=== PATIENT | male | born 1960 | race Caucasian/White ===

== ENCOUNTER 2017-08-08 10:59 | Emergency (ER) | payer OTHER ==
[2017-08-08] VITALS (10 sets, daily range): BP systolic 99–148; BP diastolic 58–79; PULSE 81–102; TEMP 36.5–37.2; O2SAT 95–100; Ht 180.3 cm; Wt 57.0 kg
[~2017-08-08] VITALS: Ht 180.3 cm; Wt 57.0 kg
[2017-08-08] MEDS ORDERED: SODIUM CHLORIDE 0.9% 1000ML 1,000 ML IV STA (11:15)
[2017-08-08] MEDS ORDERED: ACETAMINOPHEN 500 MG TAB PO STA (11:15)
[2017-08-08] MEDS ORDERED: PIPERACILLIN/TAZOBACTAM 4.5 GM/100ML D5W IV STA (11:15)
--- NOTE | 2017-08-08 11:28 | EMERGENCY ROOM VISIT NOTE ---
History Report prepared by Anum: Jay Barrera Under the Supervision of: Dr. Mao Bansal M.D. First contact with patient: 11:12 Chief Complaint: RECTAL PAIN Stated Complaint: RECTAL DISCOMFORT, FLUID, WEAKNESS Nursing Triage Summary: pt reports rectal protrussion x1 year. has not been feeling well tired and weak. wt loss and yellow hue to skin has rectal drainage white colored History of Present Illness The patient is a 56 year old male who presents to the Emergency Room with complaints of worsening rectal discharge that began 1 year ago. He states that he has never sought medical attention for this issue because he has not had health insurance. Over this time, he has been experiencing increased weight loss and weakness. He also has been feeling short of breath with exertion. He denies any fevers, chest pain, nausea, vomiting, or diarrhea. He notes some difficulty urinating, swelling to his legs, pain with bowel movements, and diaphoresis when he sleeps. He is not currently taking any medications. Source of History: patient Onset: 1 year ago Position: other (Rectal) Symptom Intensity: moderate Quality: other (Discharge) Timing: worsening Associated Symptoms: + diaphoresis, + SOB (with exertion), + urinary symptoms (difficulty urinating), + weakness, No fevers, No chest pain, No nausea , No vomiting, No diarrhea Note: He is experiencing weight loss, pain with bowel movements, and swelling to his legs. Review of Systems See HPI for pertinent positives & negatives. A total of 10 systems reviewed and were otherwise negative. Past Medical & Surgical No known medical conditions Family History Patient reports no known family medical history. Social History Smoking Status: Never Smoker Drug Use: none Occupation Status: employed Current/Historical Medications No Active Prescriptions or Reported Meds Allergies Coded Allergies: No Known Allergies (Unverified , 08/08/17) Physical Exam Vital Signs Date Time Temp Pulse Resp B/P (MAP) Pulse Ox O2 Delivery O2 Flow Rate FiO2 08/08/17 17:25 36.9 85 18 125/64 100 08/08/17 17:00 37.0 82 20 99/66 99 08/08/17 17:00 37.0 79 20 99/66 99 Room Air 08/08/17 16:00 36.5 85 17 102/58 96 08/08/17 15:25 37.0 81 20 101/66 96 1/30/18 15:00 37.0 102 20 141/75 97 08/08/17 14:49 83 18 103/66 95 Room Air 08/08/17 12:52 99 18 129/81 97 Room Air 08/08/17 11:39 Room Air 08/08/17 11:38 109 08/08/17 11:03 37.6 127 20 131/77 98 Room Air Physical Exam GENERAL: Patient is in no acute distress. HEENT: No acute trauma, normocephalic atraumatic, mucous membranes moist, no nasal congestion, no scleral icterus. NECK: No stridor, no adenopathy, no meningismus, trachea is midline. LUNGS: Clear to auscultation bilaterally, no wheeze, no rhonchi, breath sounds equal. HEART: Tachycardic rate with a regular rhythm. No murmurs. ABDOMEN: Soft, nontender, bowel sounds positive, no hernias, no peritonitis. RECTUM: Firm mass-like swelling to the left aspect of the rectum and buttock. No cellulitis. Area is somewhat tender to palpate. No pus-like drainage appreciated. EXTREMITIES: No cyanosis, full range of motion of all the joints without pain or difficulty, no signs for acute trauma. Moderate bilateral pedal edema. NEUROLOGIC: Oriented x 3, no acute motor or sensory deficits, no focal weakness. SKIN: No rash, no jaundice, no diaphoresis. Pale. Medical Decision & Procedures ER Provider Diagnostic Interpretation: Radiology results as stated below per my review and radiologist interpretation: CHEST ONE VIEW PORTABLE CLINICAL HISTORY: Abdominal pain. COMPARISON STUDY: No previous studies for comparison. FINDINGS: Lung volumes are normal. There is no pneumothorax. There is no definite pleural effusion. There is mild nodular left basilar opacity as well as a 1.3 cm nodular right lower lung opacity. There is no evidence for pulmonary edema. Note is made of an old fracture of the right third rib. Cardiac size is normal. Mediastinal contours are normal. IMPRESSION: 1. No definite acute cardiopulmonary findings. 2. Mild nodular bibasilar opacities which can be assessed on subsequent CT of the abdomen and pelvis which has been ordered. Electronically signed by: Clayton Caceres M.D. 08/08/2017 11:39 AM Dictated Date/Time: 08/08/2017 11:[address] ABD/PELVIS IV AND ORAL CONT CLINICAL HISTORY: Generalized abdominal pain. Possible diverticulitis. Possible rectal mass. Possible abscess. COMPARISON STUDY: None. TECHNIQUE: Following the IV administration of 120 mL of Optiray-320, CT scan of the abdomen and pelvis was performed from the lung bases to the proximal femurs. Images are reviewed in the axial, sagittal, and coronal planes. IV contrast was administered without complication. A dose lowering technique was utilized adhering to the principles of ALARA. CT DOSE: 272.59 mGy.cm FINDINGS: Lower chest: There is a 32 mm pleural-based nodule at the left lung base. There is an adjacent 5 mm satellite nodule. There is an equivocal prominent vessel leading up to this 32 mm nodule. There is a 19 mm pleural-based nodule at the right lung base. Also evident are additional 5 mm and 4 mm left lower lobe nodules. Liver: There are multiple hepatic masses present. The 2 largest right lobe masses measure 5.8 cm and 2.9 cm respectively. The 2 largest left flow masses measure 6.2, and 5.3 cm respectively. Gallbladder: No calculi are visualized on CT scanning. Spleen: Normal in size and attenuation. Pancreas: Unremarkable. Adrenal glands: Unremarkable. Kidneys: There is symmetric renal cortical enhancement. The kidneys are normal in size without hydronephrosis. Bowel: There is a 12 cm rectosigmoid mass extending to the anal verge. There is an adjacent multiloculated perirectal abscess measuring 8.6 x 7.8 x 12 cm. The rectosigmoid mass appears to extend into the pericolonic fat. Peritoneum: There is no intraperitoneal free air or abdominal ascites. Vasculature: The abdominal aorta is normal in course and caliber. There is a filling defect within the right superficial femoral vein. As highly suspicious for a DVT. Ultrasound confirmation is recommended. Adenopathy: There are multiple small para-aortic lymph nodes which do not individually enlarged by size criteria. There are borderline enlarged left inguinal lymph nodes. Pelvic viscera: The patient's rectosigmoid mass is contiguous with the seminal vesicles, and prostate.. Skeletal structures: No destructive osseous lesions are seen. IMPRESSION: 1. 12 cm rectosigmoid mass, with moderate luminal narrowing, and extension into the pericolonic fat. There is evidence of prior perforation with a perirectal abscess. 2. Multiloculated perirectal abscess measuring 8.6 x 7.8 x 12 cm 3. Multiple hepatic masses viewed as highly suspicious for metastatic disease 4. Right superficial femoral vein filling defect viewed as highly suspicious for DVT 5. Lower lobe pulmonary nodules. Electronically signed by: Konstantin Bush M.D. 08/08/2017 2:36 PM Dictated Date/Time: 08/08/2017 2:14 PM Bilateral lower extremity ultrasound: IMPRESSION: Extensive bilateral lower extremity deep venous thrombosis as above. Laboratory Results 08/08/17 11:45 Red Blood Count 3.04, Mean Corpuscular Volume 57.6, Mean Corpuscular Hemoglobin 14.8, Mean Corpuscular Hemoglobin Concent 25.7, Neutrophils (%) (Auto) 87.7, Lymphocytes (%) (Auto) 4.4, Monocytes (%) (Auto) 7.0, Eosinophils (%) (Auto) 0.1 , Basophils (%) (Auto) 0.3, Neutrophils # (Auto) 12.45, Lymphocytes # (Auto) 0.63, Monocytes # (Auto) 0.99, Eosinophils # (Auto) 0.02, Basophils # (Auto) 0.04 08/08/17 11:45 Test 08/08/17 11:25 08/08/17 11:45 08/08/17 12:42 Influenza Type A Antigen Neg for Influ A (NEG) Influenza Type B Antigen Neg for Influ B (NEG) White Blood Count 14.20 K/uL (4.8-10.8) Red Blood Count 3.04 M/uL (4.7-6.1) Hemoglobin 4.5 g/dL (14.0-18.0) Hematocrit 17.5 % (42-52) Mean Corpuscular Volume 57.6 fL (80-100) Mean Corpuscular Hemoglobin 14.8 pg (25-34) Mean Corpuscular Hemoglobin Concent 25.7 g/dl (32-36) Platelet Count 503 K/uL (130-400) Neutrophils (%) (Auto) 87.7 % Lymphocytes (%) (Auto) 4.4 % Monocytes (%) (Auto) 7.0 % Eosinophils (%) (Auto) 0.1 % Basophils (%) (Auto) 0.3 % Neutrophils # (Auto) 12.45 K/uL (1.4-6.5) Lymphocytes # (Auto) 0.63 K/uL (1.2-3.4) Monocytes # (Auto) 0.99 K/uL (0.11-0.59) Eosinophils # (Auto) 0.02 K/uL (0-0.5) Basophils # (Auto) 0.04 K/uL (0-0.2) Immature Granulocyte % (Auto) 0.5 % Immature Granulocyte # (Auto) 0.07 K/uL (0.00-0.02) Toxic Vacuolation 1+ Large Platelets 1+ Polychromasia 1+ Hypochromasia PRESENT Poikilocytosis PRESENT Prothrombin Time 11.0 SECONDS (9.0-12.0) Prothromb Time International Ratio 1.0 (0.9-1.1) Activated Partial Thromboplast Time 22.5 SECONDS (21.0-31.0) Partial Thromboplastin Ratio 0.9 Anion Gap 10.0 mmol/L (3-11) Est Creatinine Clear Calc Drug Dose 78.2 ml/min Estimated GFR () 112.4 Estimated GFR (Non- 97.0 BUN/Creatinine Ratio 19.0 (10-20) Calcium Level 8.5 mg/dl (8.5-10.1) Magnesium Level 2.1 mg/dl (1.8-2.4) Total Bilirubin 0.3 mg/dl (0.2-1) Aspartate Amino Transf (AST/SGOT) 34 U/L (15-37) Alanine Aminotransferase (ALT/SGPT) 24 U/L (12-78) Alkaline Phosphatase 79 U/L (45-117) Troponin I < 0.015 ng/ml (0-0.045) Total Protein 7.6 gm/dl (6.4-8.2) Albumin 2.2 gm/dl (3.4-5.0) Globulin 5.4 gm/dl (2.5-4.0) Albumin/Globulin Ratio 0.4 (0.9-2) Lipase 38 U/L (73-393) Thyroid Stimulating Hormone (TSH) 1.700 uIu/ml (0.300-4.500) Lactic Acid Level 1.5 mmol/L (0.4-2.0) Laboratory results reviewed by me. Medications Administered Medications (Trade) Dose Ordered Sig/Lety Route Start Time Stop Time Status Last Admin Dose Admin Acetaminophen (Tylenol Tab) 1,000 mg NOW STAT PO 08/08/17 11:15 08/08/17 11:20 DC 1/30/18 12:51 1,000 MG Sodium Chloride 1,000 ml @ 999 mls/hr Q1H1M STAT IV 08/08/17 11:15 08/08/17 12:15 DC 08/08/17 12:51 999 MLS/HR Piperacillin Sod/ Tazobactam Sod (Zosyn Iv) 4.5 gm NOW STAT IV 08/08/17 11:15 08/08/17 11:20 DC 08/08/17 12:51 4.5 GM ECG Indication: tachycardia Rate (beats per minute): 103 Rhythm: sinus tachycardia Findings: peaked T-waves, no acute ischemic change, no ectopy Change: ECG interpreted by me ED Course 1112: The patient was evaluated in room C10. A complete history and physical exam was performed. 1115: Ordered Zosyn Iv 4.5 gm IV, Sodium Chloride 1000 ml @ 999 mls/hr IV, Tylenol Tab 1000 mg PO 1452: I discussed the patient's case with Dr. Steven of General Surgery at this time. He would like to transfer the patient to a tertiary care facility. 1458: The patient is agreeable with possible transfer. He would like to try [place]. 1534: I spoke with Dr. Mitchell of [facility] Colorectal Surgery at this time. We discussed the patient's case. They will try to find a bed for the patient and will call us back. 1620: I updated the patient at this time. He is aware of the plan. He is beginning to look better. His heart rate is down to 80 bpm and he is getting fluids. 1700: A bed has not opened up at [facility] yet, so we will talk with a hospitalist service for inpatient treatment pending bed availability. 1704: Upon reexamination the patient is resting. I discussed results and treatment plan with the patient. He verbalizes agreement and understanding. I spoke with Dr. Mondragon of the [facility]. We discussed the patient's results and findings. The patient will be evaluated by them for further management. 1708: I spoke with Dr. Pope of the ICU. He will be down to the ER to evaluate the patient. Medical Decision Differential diagnosis includes but is not limited to rectal abscess, rectal mass, diverticulitis, hemorrhoid, dehydration, electrolyte imbalance, anemia, sepsis, and UTI. There is a moderate leukocytosis at 14,000, this is consistent with infection. The patient is severely anemic with a hemoglobin of around 4.5. No significant electrolyte abnormality or kidney failure. No hepatitis or coagulopathy. Lactic acid level is not elevated making severe sepsis less likely. Chest film did not show pneumonia or pneumothorax. Some potential nodules were seen. EKG showed a sinus tachycardia with out any evidence for acute ischemia. Cardiac enzyme testing 1 is not consistent with acute cardiac injury. The patient appears to be in a euthyroid state. Abdominal and pelvis CT shows a perirectal mass and a large perirectal abscess, there was evidence for potential metastases in the liver. A clot in the right femoral vein was suspected. Bilateral lower external ultrasound demonstrates evidence for bilateral lower extremity DVTs. The patient was aggressively managed as he presented quite ill. He received IV saline, IV Zosyn. He was ordered for blood for transfusion, 2 units were ordered to be given, each over about 1- 2 hours. The blood was started here in the emergency room. The patient received oral Tylenol. The patient is improved with the above treatment. He feels better, his heart rate is improved. He is not hypotensive. I spoke with our general surgeon on-call about the abscess finding, he recommended transfer. Given the patient's insurance, he required transfer into the [facility] system. [facility] did not have a colorectal surgeon. [facility] in [place] was contacted. I spoke to the colorectal surgeon there. They were happy with the care so far, they recommended further resuscitation. They did want to accept the patient to their facility however, there was no bed available. After several hours of waiting, we did recontact [facility], there was no bed available. At this point, a hospital stay at our facility for further resuscitation with eventual transfer to [facility] was felt the most appropriate option. I talked to the patient about all the findings, I did speak with our health psychologist at this hospital as well as our on-call [facility] hospitalist. I spoke with case management. Medication Reconcilliation Current Medication List: was personally reviewed by me Blood Pressure Screening Patient's blood pressure: Normal blood pressure Blood pressure disposition: Did not require urgent referral Consults Time Called: [id number] Consulting Physician: Dr. Steven - General Surgery Returned Call: [phone] We discussed the patient's case. He would like the patient to be transferred to a tertiary care facility. Additional Consults: Time Called: 1530 Consulted Physician: Dr. Mitchell - [facility] Colorectal Surgery Returned Call: [phone] Additional Comments: We discussed the patient's case. They are trying to find a bed for the patient and will call me back. Time Called: 1700 Consulted Physician: Dr. Mondragon - [facility] Returned Call: [phone] Additional Comments: Discussed the patient's case. The patient will be evaluated for further management. 170 Dr. Pope - ICU 1708 He will be down to the ER to evaluate the patient. Impression Primary Impression: Rectal mass Additional Impressions: Perirectal abscess Anemia DVT, bilateral lower limbs Critical Care I have personally spent greater than 50 minutes of critical care time in the direct management of this patient. This includes bedside care, interpretation of diagnostic studies, and testing, discussion with consultants, patient, and family members, and other required patient management activities. This 50 minutes is in excess of all separately billable procedures. Scribe Attestation The scribe's documentation has been prepared under my direction and personally reviewed by me in its entirety. I confirm that the note above accurately reflects all work, treatment, procedures, and medical decision making performed by me. Departure Information Dispostion Being Evaluated By Hospitalist Prescriptions No Active Prescriptions or Reported Meds Patient Instructions My [facility] Problem Qualifiers
--- NOTE | 2017-08-08 11:40 | DIAGNOSTIC IMAGING REPORT ---
CHEST ONE VIEW PORTABLE CLINICAL HISTORY: Abdominal pain. COMPARISON STUDY: No previous studies for comparison. FINDINGS: Lung volumes are normal. There is no pneumothorax. There is no definite pleural effusion. There is mild nodular left basilar opacity as well as a 1.3 cm nodular right lower lung opacity. There is no evidence for pulmonary edema. Note is made of an old fracture of the right third rib. Cardiac size is normal. Mediastinal contours are normal. IMPRESSION: 1. No definite acute cardiopulmonary findings. 2. Mild nodular bibasilar opacities which can be assessed on subsequent CT of the abdomen and pelvis which has been ordered. Electronically signed by: Clayton Caceres M.D. 08/08/2017 11:39 AM Dictated Date/Time: 08/08/2017 11:37 AM
[2017-08-08] MEDS ORDERED: OPTIRAY 320 IV PRN (11:45)
[2017-08-08 12:20] LABS: PTT PATIENT 22.5 SECONDS (21.0-31.0)
[2017-08-08 12:27] LABS: INFLUENZA B ANTIGEN Neg for Influ B (NEG)
[2017-08-08 12:28] LABS: ALBUMIN 2.2 gm/dl (3.4-5.0); ALT/SGPT 24 U/L (12-78); BLOOD UREA NITROGEN 16 mg/dl (7-18); CALCIUM 8.5 mg/dl (8.5-10.1); CARBON DIOXIDE 25 mmol/L (21-32); CREATININE 0.83 mg/dl (0.60-1.40); GLUCOSE 111 mg/dl (70-99); LIPASE 38 U/L (73-393); POTASSIUM 4.1 mmol/L (3.5-5.1); SODIUM 134 mmol/L (136-145)
[2017-08-08 12:33] LABS: HEMATOCRIT 17.5 % (42-52); HEMOGLOBIN 4.5 g/dL (14.0-18.0); MEAN CELL VOLUME 57.6 fL (80-100); MEAN CORPUSCULAR HEMOGLOBIN 14.8 pg (25-34); MEAN CORPUSCULAR HGB CONC 25.7 g/dl (32-36); PLATELET COUNT 503 K/uL (130-400)
[2017-08-08 12:39] LABS: ALKALINE PHOSPHATASE 79 U/L (45-117); AST/SGOT 34 U/L (15-37); TOTAL PROTEIN 7.6 gm/dl (6.4-8.2)
[2017-08-08 12:55] LABS: BASO % 0.3 %; BASO ABS # 0.04 K/uL (0-0.2); EOS % 0.1 %; EOS ABS # 0.02 K/uL (0-0.5); IG# 0.07 K/uL (0.00-0.02); LYMPH % 4.4 %; LYMPH ABS # 0.63 K/uL (1.2-3.4); MONO ABS # 0.99 K/uL (0.11-0.59); NEUT % 87.7 %; NEUT ABS # 12.45 K/uL (1.4-6.5)
--- NOTE | 2017-08-08 14:38 | DIAGNOSTIC IMAGING REPORT ---
CT ABD/PELVIS IV AND ORAL CONT CLINICAL HISTORY: Generalized abdominal pain. Possible diverticulitis. Possible rectal mass. Possible abscess. COMPARISON STUDY: None. TECHNIQUE: Following the IV administration of 120 mL of Optiray-320, CT scan of the abdomen and pelvis was performed from the lung bases to the proximal femurs. Images are reviewed in the axial, sagittal, and coronal planes. IV contrast was administered without complication. A dose lowering technique was utilized adhering to the principles of ALARA. CT DOSE: 272.59 mGy.cm FINDINGS: Lower chest: There is a 32 mm pleural-based nodule at the left lung base. There is an adjacent 5 mm satellite nodule. There is an equivocal prominent vessel leading up to this 32 mm nodule. There is a 19 mm pleural-based nodule at the right lung base. Also evident are additional 5 mm and 4 mm left lower lobe nodules. Liver: There are multiple hepatic masses present. The 2 largest right lobe masses measure 5.8 cm and 2.9 cm respectively. The 2 largest left flow masses measure 6.2, and 5.3 cm respectively. Gallbladder: No calculi are visualized on CT scanning. Spleen: Normal in size and attenuation. Pancreas: Unremarkable. Adrenal glands: Unremarkable. Kidneys: There is symmetric renal cortical enhancement. The kidneys are normal in size without hydronephrosis. Bowel: There is a 12 cm rectosigmoid mass extending to the anal verge. There is an adjacent multiloculated perirectal abscess measuring 8.6 x 7.8 x 12 cm. The rectosigmoid mass appears to extend into the pericolonic fat. Peritoneum: There is no intraperitoneal free air or abdominal ascites. Vasculature: The abdominal aorta is normal in course and caliber. There is a filling defect within the right superficial femoral vein. As highly suspicious for a DVT. Ultrasound confirmation is recommended. Adenopathy: There are multiple small para-aortic lymph nodes which do not individually enlarged by size criteria. There are borderline enlarged left inguinal lymph nodes. Pelvic viscera: The patient's rectosigmoid mass is contiguous with the seminal vesicles, and prostate.. Skeletal structures: No destructive osseous lesions are seen. IMPRESSION: 1. 12 cm rectosigmoid mass, with moderate luminal narrowing, and extension into the pericolonic fat. There is evidence of prior perforation with a perirectal abscess. 2. Multiloculated perirectal abscess measuring 8.6 x 7.8 x 12 cm 3. Multiple hepatic masses viewed as highly suspicious for metastatic disease 4. Right superficial femoral vein filling defect viewed as highly suspicious for DVT 5. Lower lobe pulmonary nodules. Electronically signed by: Konstantin Bush M.D. 08/08/2017 2:36 PM Dictated Date/Time: 08/08/2017 2:14 PM
--- NOTE | 2017-08-08 17:52 | DIAGNOSTIC IMAGING REPORT ---
ULTRASOUND BILATERAL LOWER EXTREMITY VENOUS CLINICAL HISTORY: Lower extremity edema. Cancer history. COMPARISON STUDY: No priors. TECHNIQUE: Real-time, grayscale, and color Doppler sonography of the deep veins of the right and left lower extremity was performed from the inguinal crease to the calf. Compression and augmentation were utilized. FINDINGS: Right lower extremity: There is extensive right lower extremity deep venous thrombosis. There is nearly occlusive to occlusive deep venous thrombosis identified within the common femoral vein, throughout the superficial femoral vein, in the popliteal vein, and in the calf veins. The greater saphenous vein and the profunda femoris vein at the junction with the common femoral vein are clear. Left lower extremity: There is extensive deep venous thrombosis in the left lower extremity. This is seen nonocclusive throughout the superficial femoral vein, and becomes occlusive in the popliteal vein. Deep venous thrombosis is also seen in the calf within the anterior tibial, posterior tibial, and peroneal veins. The common femoral vein is patent and normally compressible. The greater saphenous vein and the profunda femoris vein at the junction with the common femoral vein are clear. The visualized calf veins are patent The iliac vessels appear patent bilaterally. The mid to distal IVC is patent as visualized. IMPRESSION: Extensive bilateral lower extremity deep venous thrombosis as above. Electronically signed by: Mao Mancini M.D. 08/08/2017 5:51 PM Dictated Date/Time: 08/08/2017 5:46 PM
[2017-08-08] MEDS ORDERED: D5NSS + 20MEQ KCL 1,000 ML IV SCH (18:38)
[2017-08-08] MEDS ORDERED: THIAMINE HCL IV STA (18:38)
[2017-08-08] MEDS ORDERED: ONDANSETRON INJ 2 MG/ML 2 ML VIAL IV PRN (18:45)
[2017-08-08] MEDS ORDERED: ACETAMINOPHEN 325 MG TAB PO PRN (18:45)
[2017-08-08] MEDS ORDERED: ALUMINUM/MAGNESIUM/SIMETH (MAALOX MAX) 30 ML UDC PO PRN (18:45)
[2017-08-08] MEDS ORDERED: VANCOMYCIN CONSULT ACTIVE PRN (18:45)
[2017-08-08] MEDS ORDERED: MoRPHine SULFATE 2 MG/ML CARP IV PRN (18:45)
[2017-08-08] MEDS ORDERED: LORAZEPAM 2 MG/ML 1 ML VIAL IV PRN (18:45)
[2017-08-08] MEDS ORDERED: GABAPENTIN 800 MG TAB PO SCH (18:45)
[2017-08-08] MEDS ORDERED: ICU PROTOCOL FOR HYPERGLYCEMIA PRN (18:45)
[2017-08-08] MEDS ORDERED: LORAZEPAM 1 MG TAB PO PRN (18:45)
[2017-08-08] MEDS ORDERED: PIPERACILL/TAZOBAC CONSULT ACTIVE PRN (18:45)
[2017-08-08] MEDS ORDERED: HEPARIN SOD (PORCINE) 1000 UNIT/ML 10 ML VIAL ONE (19:18)
[2017-08-08] MEDS ORDERED: HEPARIN 25000 UNIT/500 ML D5W ONE (19:18)
--- NOTE | 2017-08-08 19:26 | Critical Care Consultation ---
Critical Care Consultation Date of Consultation: Aug 08, 2017. Attending Physician: Rolf Reason for Consultation: Profound anemia, new colon mass, colon Abscess History of Present Illness Patient is a 56-year-old male without significant past medical history who presents with worsening rectal discharge and symptomatology that began over a year ago. He deferred medical care secondary to being uninsured. He is now obtained health insurance. He is admits to approximately 40 pound weight loss as well as early satiety. He has tenesmus and small stools. He's been feeling increasingly short of breath with past several weeks. He denies any overt rectal bleeding occasionally he does notice spots on the toilet paper. Past Medical/Surgical History Heavy alcohol use with withdrawal seizure previously Family History Patient reports no known family medical history. Social History Smoking Status: Never Smoker Alcohol Use: heavy (with history of alcohol withdrawal seizure) Drug Use: none Occupation Status: employed Allergies Coded Allergies: No Known Allergies (Unverified , 08/08/17) Home Medications No Active Prescriptions or Reported Meds Current Inpatient Medications Current Inpatient Medications Medications (Trade) Dose Ordered Sig/Lety Route Start Time Stop Time Status Last Admin Dose Admin Ioversol (Optiray 320) 125 ml UD PRN IV 08/08/17 11:45 08/12/17 11:44 Heparin Sodium/ Dextrose 1 ea NOW STAT N/A 08/08/17 18:28 08/08/17 18:29 UNV Potassium Chloride/Dextrose/ Sod Cl 1,000 ml @ 75 mls/hr [id number] IV 08/08/17 18:38 09/07/17 18:37 UNV Acetaminophen (Tylenol Tab) 650 mg Q4H PRN PO 08/08/17 18:45 09/07/17 18:44 UNV Al Hydrox/Mg Hydrox/Simethicone (Maalox Max Susp) 15 ml Q4H PRN PO 08/08/17 18:45 09/07/17 18:44 UNV Ondansetron HCl (Zofran Inj) 4 mg Q6H PRN IV 08/08/17 18:45 09/07/17 18:44 UNV Pantoprazole Sodium (Protonix Tab) 40 mg DAILY PO 08/09/17 09:00 09/08/17 08:59 UNV Morphine Sulfate (MoRPHine SULFATE INJ) 2 mg Q2H PRN IV 08/08/17 18:45 08/22/17 18:44 UNV Miscellaneous Information (Icu Protocol For Hyperglycemia) 1 ea PRN PRN N/A 08/08/17 18:45 08/10/17 18:44 UNV Thiamine HCl 200 mg/Syringe 11 ml @ 2 mls/min Q12H STAT IV 08/08/17 18:38 08/08/17 18:43 UNV Lorazepam (Ativan Tab) 1 mg ONE PRN PO 08/08/17 18:45 UNV Gabapentin (Neurontin Tab) 800 mg SEE PROTOCOL TEXT PO 08/08/17 18:45 09/07/17 18:44 UNV Lorazepam (Ativan Inj) 1 mg ONE PRN IV 08/08/17 18:45 UNV Folic Acid 1 mg/ Syringe 10 ml @ 5 mls/min QAM IV 08/09/17 09:00 09/08/17 08:59 UNV Multivitamins/ Minerals (Multivitamin W/ Minerals Tab) 1 tab QAM PO 08/09/17 09:00 09/08/17 08:59 UNV Piperacillin Sod/ Tazobactam Sod 3.375 gm/Dextrose 115 ml @ 28.75 mls/ hr Q8 IV 08/09/17 02:00 08/19/17 01:59 UNV Miscellaneous Information (Consult) 1 ea UD PRN N/A 08/08/17 18:45 09/07/17 18:44 UNV Vancomycin HCl 1000 mg/Sodium Chloride 270 ml @ 125 mls/hr Q12 IV 08/08/17 21:00 08/18/17 20:59 UNV Miscellaneous Information (Consult) 1 ea UD PRN N/A 08/08/17 18:45 09/07/17 18:44 UNV Review of Systems A 10 point review of systems has been obtained and is otherwise negative Constitutional: + weight loss, + weakness, + fatigue Eyes: No worsening of vision, No eye pain, No redness, No discharge, No diplopia, No problem reported Respiratory: No cough, No sputum, No wheezing, No shortness of breath, No dyspnea on exertion, No dyspnea at rest, No hemoptysis, No problem reported Cardiovascular: No chest pain, No orthopnea, No PND, No edema, No claudication , No palpitations, No problem reported Abdomen: + pain, + problem reported (tenesmus), No GI bleeding Physical Exam Date Time Temp Pulse Resp B/P (MAP) Pulse Ox O2 Delivery O2 Flow Rate FiO2 08/08/17 18:45 37.2 83 18 104/68 98 08/08/17 18:45 37.2 83 18 104/68 98 Room Air 08/08/17 18:18 36.9 83 20 124/74 98 08/08/17 17:25 36.9 85 18 125/64 100 08/08/17 17:00 37.0 82 20 99/66 99 08/08/17 17:00 37.0 79 20 99/66 99 Room Air 08/08/17 16:00 36.5 85 17 102/58 96 08/08/17 15:25 37.0 81 20 101/66 96 08/08/17 15:00 37.0 102 20 141/75 97 08/08/17 14:49 83 18 103/66 95 Room Air 08/08/17 12:52 99 18 129/81 97 Room Air 08/08/17 11:39 Room Air 08/08/17 11:38 109 08/08/17 11:03 37.6 127 20 131/77 98 Room Air General Appearance: uncomfortable, cachetic Head: normocephalic, atraumatic Eyes: PERRLA Neck: normal range of motion, no tenderness, trachea midline, no stridor, supple, no thyromegaly, no lymphadenopathy Respiratory: breath sounds normal, clear to auscultation, clear to percussion Cardiovasular: regular rate/rhythm, normal S1S2, no M/G/R, no murmur, no gallop , no rub, no JVD, normal peripheral pulses Abdomen: non tender, no rebound, no masses, no guarding Upper Extremities: no edema Lower Extremities: no edema Neuro: alert, oriented x 3 Laboratory Results Last 24 Hours Test 08/08/17 11:25 08/08/17 11:45 08/08/17 12:42 08/08/17 18:38 Influenza Type A Antigen Neg for Influ A Influenza Type B Antigen Neg for Influ B White Blood Count 14.20 K/uL Red Blood Count 3.04 M/uL Hemoglobin 4.5 g/dL Hematocrit 17.5 % Mean Corpuscular Volume 57.6 fL Mean Corpuscular Hemoglobin 14.8 pg Mean Corpuscular Hemoglobin Concent 25.7 g/dl Platelet Count 503 K/uL Neutrophils (%) (Auto) 87.7 % Lymphocytes (%) (Auto) 4.4 % Monocytes (%) (Auto) 7.0 % Eosinophils (%) (Auto) 0.1 % Basophils (%) (Auto) 0.3 % Neutrophils # (Auto) 12.45 K/uL Lymphocytes # (Auto) 0.63 K/uL Monocytes # (Auto) 0.99 K/uL Eosinophils # (Auto) 0.02 K/uL Basophils # (Auto) 0.04 K/uL Immature Granulocyte % (Auto) 0.5 % Immature Granulocyte # (Auto) 0.07 K/uL Toxic Vacuolation 1+ Large Platelets 1+ Polychromasia 1+ Hypochromasia PRESENT Poikilocytosis PRESENT Prothrombin Time 11.0 SECONDS Prothromb Time International Ratio 1.0 Activated Partial Thromboplast Time 22.5 SECONDS Partial Thromboplastin Ratio 0.9 Sodium Level 134 mmol/L Potassium Level 4.1 mmol/L Chloride Level 99 mmol/L Carbon Dioxide Level 25 mmol/L Anion Gap 10.0 mmol/L Blood Urea Nitrogen 16 mg/dl Creatinine 0.83 mg/dl Est Creatinine Clear Calc Drug Dose 78.2 ml/min Estimated GFR () 112.4 Estimated GFR (Non- 97.0 BUN/Creatinine Ratio 19.0 Random Glucose 111 mg/dl Calcium Level 8.5 mg/dl Magnesium Level 2.1 mg/dl Total Bilirubin 0.3 mg/dl Aspartate Amino Transf (AST/SGOT) 34 U/L Alanine Aminotransferase (ALT/SGPT) 24 U/L Alkaline Phosphatase 79 U/L Troponin I < 0.015 ng/ml Total Protein 7.6 gm/dl Albumin 2.2 gm/dl Globulin 5.4 gm/dl Albumin/Globulin Ratio 0.4 Lipase 38 U/L Thyroid Stimulating Hormone (TSH) 1.700 uIu/ml Lactic Acid Level 1.5 mmol/L Diagnostic Results I independently reviewed the images as well as the radiology report for the CT scan obtained 08/08/2017: Patient has a mass in the colon, obvious abscess in the colon, hyperdensities and hypodensities throughout the liver concerning for malignant, metastatic disease. I also reviewed the images as well as the report for the venous Doppler study. Patient has bilateral DVTs I have independently reviewed the images as well as the report of the chest x- ray, there appears to be a lung nodule in the right lower lung base. Assessment & Plan I was asked to evaluate the patient due to undetermined length of stay at [facility]. In the emergency department the ED physician consult general surgery. General surgery feels he would be best managed at a higher level of care with colorectal surgeon. The patient has been accepted to [facility] however they were unsure of a time in which a bed would open up. He is going to be transferred to their ICU. In the ED physician's discussion with the [facility] physician as was relayed to me they're comfortable with Zosyn for antibiotic coverage and continuing transfusions. At this point there were unaware of the bilateral clot burden. I called our vascular surgeon Dr. Sanabria who is unavailable for several hours. I again called general surgery Dr. Steven to inquire if they have the ability to place an IVC filter. I feel the patient would be best treated with an IVC filter because he is going to have to undergo invasive procedures and given the profound anemia and may be an option instead of having the patient started on a heparin infusion while being transported. Dr. Steven informed me he does not place IVC filters. Accordingly in discussion with the patient felt the risk benefits of clot embolization are high enough that warrant a heparin infusion to be started. I will transfuse him a total of 4 units which I have ordered 2 additional units to be transfused. The 2 initial units to be transfused should elevate his hemoglobin to 6 however since we are starting a heparin infusion if he has more bleeding it would be safer to having increased safety margin. Patient is steadily going to be admitted to the ICU until there is a bed at [facility]. Patient also has heavy alcohol use she'll be started on empiric medication for alcohol withdrawal. I have personally spent 35 minutes of critical care time in the direct management of this patient. This is a life/limb threatening event. This includes time spent evaluating patient, direct bedside care, chart review, placing orders, interpretation of diagnostic studies, discussion with consultants, patient, and/or family members regarding treatment decisions, as well as other required patient management activities. This time is exclusive of all separately billable procedures, and teaching time and separate from and in addition to any other critical care service time.
--- NOTE | 2017-08-08 19:27 | History and Physical ---
History & Physical Date & Time of Service: Aug 08, 2017 at 17:56 Chief Complaint: Rectal Discomfort, Fluid, Weakness Primary Care Physician: Demetri River D.O. History of Present Illness Source: patient 56yo male with history of alcohol dependence who presents with 1 year of severe weight loss (50 pounds), anorexia, rectal mass with drainage and intermittent subjective fevers/chills. He also mentions that for several weeks he has felt "disoriented" at work with issues concentrating, etc. For 2-3 weeks he has had progressive LE edema, worse on the right, along with myalgias. He has also noted dyspnea on exertion over the same period of time. No prior history of having had a colonoscopy. He has not seen a physician in several years, in fact, for any routine health maintenance. He reports having had an alcohol withdrawal seizure back in the . No seizures since. Denies getting she shakes with alcohol cessation. Past Medical/Surgical History PMH: HTN former tobacco dependence PSH: none Family History Patient reports no known family medical history. 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[employer])) Allergies Coded Allergies: No Known Allergies (Unverified , 08/08/17) Home Medications No Active Prescriptions or Reported Meds Review of Systems Constitutional: + fever, + chills, + weight loss (50 pound weight loss), + weakness, + fatigue Eyes: + worsening of vision (blurry) ENT: + nasal symptoms (x 2 weeks), No trouble swallowing Respiratory: + cough, + sputum, + dyspnea on exertion (new - started last few weeks), No shortness of breath Cardiovascular: + edema (started 2 months ago on the right; 1 month ago on the left), No chest pain Abdomen: + nausea, + constipation, No pain, No vomiting, No GI bleeding Musculoskeletal: No joint pain Genitourinary - Male: + dysuria Neurologic: + problem reported (difficulty concentrating recently; no headaches ), No numbness/tingling Psychiatric: No depression symptoms Endocrine: + fatigue Hematologic / Lymphatic: No abnormal bleeding/bruising Integumentary: No rash Physical Exam Vital Signs Date Time Temp Pulse Resp B/P (MAP) Pulse Ox O2 Delivery O2 Flow Rate FiO2 08/08/17 17:25 36.9 85 18 125/64 100 08/08/17 17:00 37.0 82 20 99/66 99 08/08/17 17:00 37.0 79 20 99/66 99 Room Air 08/08/17 16:00 36.5 85 17 102/58 96 08/08/17 15:25 37.0 81 20 101/66 96 08/08/17 15:00 37.0 102 20 141/75 97 08/08/17 14:49 83 18 103/66 95 Room Air 08/08/17 12:52 99 18 129/81 97 Room Air 08/08/17 11:39 Room Air 08/08/17 11:38 109 08/08/17 11:03 37.6 127 20 131/77 98 Room Air General Appearance: no apparent distress, + cachetic, + thin Head: normocephalic, atraumatic Eyes: PERRL, sclerae normal ENT: hearing grossly normal, TMs normal, pharynx normal Neck: supple, no adenopathy, thyroid normal, no JVD Respiratory/Chest: lungs clear, no respiratory distress, no accessory muscle use Cardiovascular: regular rate, rhythm, no gallop, no murmur, normal peripheral pulses Abdomen/GI: normal bowel sounds, non tender, soft, no organomegaly, + pertinent finding (rectal exam - firm mass exuding from the anus; left perirectal area extending onto the left buttocks is at least a 7-8cm area of indurated/swollen skin, mild warmth, and tenderness; closer to the rectum there are 2 areas of open ulceration with purulent material) Back: normal inspection Extremities/Musculoskelatal: + pedal edema (2-3+ right; 2+ on left) 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, no motor/sensory deficits, alert, normal reflexes, oriented x 3, + pertinent finding (no asterixis ) Skin: no rash, + pallor Lymphatic: no adenopathy (no cervical LAD) Diagnostics Laboratory Results Results Past 24 Hours Test 08/08/17 11:25 08/08/17 11:45 08/08/17 12:42 Range/Units Influenza Type A Antigen Neg for Influ A NEG Influenza Type B Antigen Neg for Influ B NEG White Blood Count 14.20 4.8-10.8 K/uL Red Blood Count 3.04 4.7-6.1 M/uL Hemoglobin 4.5 14.0-18.0 g/dL Hematocrit 17.5 42-52 % Mean Corpuscular Volume 57.6 80-100 fL Mean Corpuscular Hemoglobin 14.8 25-34 pg Mean Corpuscular Hemoglobin Concent 25.7 32-36 g/dl Platelet Count 503 130-400 K/uL Neutrophils (%) (Auto) 87.7 % Lymphocytes (%) (Auto) 4.4 % Monocytes (%) (Auto) 7.0 % Eosinophils (%) (Auto) 0.1 % Basophils (%) (Auto) 0.3 % Neutrophils # (Auto) 12.45 1.4-6.5 K/uL Lymphocytes # (Auto) 0.63 1.2-3.4 K/uL Monocytes # (Auto) 0.99 0.11-0.59 K/uL Eosinophils # (Auto) 0.02 0-0.5 K/uL Basophils # (Auto) 0.04 0-0.2 K/uL Immature Granulocyte % (Auto) 0.5 % Immature Granulocyte # (Auto) 0.07 0.00-0.02 K/uL Toxic Vacuolation 1+ Large Platelets 1+ Polychromasia 1+ Hypochromasia PRESENT Poikilocytosis PRESENT Prothrombin Time 11.0 9.0-12.0 SECONDS Prothromb Time International Ratio 1.0 0.9-1.1 Activated Partial Thromboplast Time 22.5 21.0-31.0 SECONDS Partial Thromboplastin Ratio 0.9 Sodium Level 134 136-145 mmol/L Potassium Level 4.1 3.5-5.1 mmol/L Chloride Level 99 98-107 mmol/L Carbon Dioxide Level 25 21-32 mmol/L Anion Gap 10.0 3-11 mmol/L Blood Urea Nitrogen 16 7-18 mg/dl Creatinine 0.83 0.60-1.40 mg/dl Est Creatinine Clear Calc Drug Dose 78.2 ml/min Estimated GFR () 112.4 Estimated GFR (Non- 97.0 BUN/Creatinine Ratio 19.0 10-20 Random Glucose 111 70-99 mg/dl Calcium Level 8.5 8.5-10.1 mg/dl Magnesium Level 2.1 1.8-2.4 mg/dl Total Bilirubin 0.3 0.2-1 mg/dl Aspartate Amino Transf (AST/SGOT) 34 15-37 U/L Alanine Aminotransferase (ALT/SGPT) 24 12-78 U/L Alkaline Phosphatase 79 45-117 U/L Troponin I < 0.015 0-0.045 ng/ml Total Protein 7.6 6.4-8.2 gm/dl Albumin 2.2 3.4-5.0 gm/dl Globulin 5.4 2.5-4.0 gm/dl Albumin/Globulin Ratio 0.4 0.9-2 Lipase 38 73-393 U/L Thyroid Stimulating Hormone (TSH) 1.700 0.300-4.500 uIu/ml Lactic Acid Level 1.5 0.4-2.0 mmol/L Microbiology Results 08/08/17 Blood Culture, Received Pending 08/08/17 Blood Culture, Received Pending Diagnostic Radiology 1. CT abd/pelvis - IMPRESSION: 1. 12 cm rectosigmoid mass, with moderate luminal narrowing, and extension into the pericolonic fat. There is evidence of prior perforation with a perirectal abscess. 2. Multiloculated perirectal abscess measuring 8.6 x 7.8 x 12 cm 3. Multiple hepatic masses viewed as highly suspicious for metastatic disease 4. Right superficial femoral vein filling defect viewed as highly suspicious for DVT 5. Lower lobe pulmonary nodules. 2. b/l LE venous duplex study - numerous DVT b/l 3. CXR - IMPRESSION: 1. No definite acute cardiopulmonary findings. 2. Mild nodular bibasilar opacities which can be assessed on subsequent CT of the abdomen and pelvis which has been ordered. EKG EKG - NSR, no ST changes Impression Assessment and Plan 56yo male with prior tobacco dependence and current alcohol dependence presenting with severe weight loss, severe protein calorie malnutrition, severe microcytic anemia likely due to severe iron deficiency anemia, large rectal mass , and concern of a perirectal abscess. Imaging suggests probable metastatic disease to the liver. He also has b/l DVTs on dopplers. His clinical picture is consistent with/suggestive of stage 4 colorectal cancer leading to b/l DVTs, protein calorie malnutrition, probable perirectal abscess, and severe anemia. 1. perirectal abscess - IV zosyn, IV vanco, follow blood cx's, surgical consultation needed brady. 2. severe microcytic anemia - presumed Fe def anemia from chronic GI blood loss from rectal cancer. Tx 4 units PRBCs. 3. b/l LE DVTs - CAUTIOUSLY start IV heparin low-dose w/o bolus. May need IVC filter given his high risk of GI bleeding and already severe anemia. 4. dyspnea - could be due to anemia but he could easily have PEs. 5. cognitive impairment - worrisome for brain mets; ultimately needs imaging of the brain. 6. rectal mass - likely advanced colorectal cancer - needs colorectal surgery consultation - will have this at [facility]. 7. alcohol dependence - high risk of withdrawal. Thiamine 200mg IV BID, folic acid/MVI daily. Place on gabapentin protocol & ativan prn. 8. prior tobacco dependence - noted. 9. severe protein calorie malnutrition - to be addressed. After placing admission orders we were informed that patient had a bed at [facility]. I spoke with Dr. Pope from the ICU as well as the ER attending and we collectively agreed he should travel by helicopter to [place] with PRBCs running as well as heparin drip for DVTs. Vitals have remained stable in the ER while awaiting transfer. Total critical care time about 60 minutes. Note Total Time: Critical Care 30 - 74 minutes
--- NOTE | 2017-08-08 19:33 | DIAGNOSTIC IMAGING REPORT ---
CT SCAN OF THE BRAIN WITHOUT IV CONTRAST CLINICAL HISTORY: Memory impairment. Stage IV rectal cancer. COMPARISON STUDY: No priors. TECHNIQUE: Unenhanced axial CT scan of the brain is performed from the vertex to the skull base. A dose lowering technique was utilized adhering to the principles of ALARA. CT DOSE: 634.23 mGy.cm FINDINGS: Brain parenchyma: The brain parenchyma is normal in appearance. There is no hemorrhage, mass effect, or evidence of acute territorial ischemia by CT criteria. [place]-white matter is preserved. No extra-axial fluid collection is seen. Ventricles, sulci, cisterns: Normal in configuration. Intracranial vasculature: There is mild atherosclerotic calcification of the cavernous carotid arteries. Calvarium: Unremarkable. Sinuses and mastoids: The visualized paranasal sinuses are clear. The mastoid air cells are well pneumatized. Orbits: The bony orbits are grossly intact. IMPRESSION: There is no hemorrhage, mass effect, or evidence of acute territorial ischemia by CT criteria. Electronically signed by: Mao Mancini M.D. 08/08/2017 7:31 PM Dictated Date/Time: 08/08/2017 7:29 PM
[2017-08-08] MEDS ORDERED: VANCOMYCIN INJ 1,000 MG in SODIUM CHLORIDE 0.9% 250ML 250 ML IV SCH (21:00)
[2017-08-08] MEDS ORDERED: VANCOMYCIN INJ 1,500 MG in SODIUM CHLORIDE 0.9% 500ML 500 ML IV SCH (21:00)
[2017-08-08] MEDS ORDERED: HEPARIN IV LOW DOSE NO BOLUS SCH (21:04)
[2017-08-09] MEDS ORDERED: PIPERACILL/TAZOBAC IV 3.375 GM in DEXTROSE 5% 100ML 100 ML IV SCH (02:00)
[2017-08-09] MEDS ORDERED: CEROVITE ADV FORMULA TAB PO SCH (09:00)
[2017-08-09] MEDS ORDERED: PANTOprazole SOD 40 MG TAB PO SCH (09:00)
[2017-08-09] MEDS ORDERED: FoLIC ACID INJ 1 MG in SYRINGE 9.8 ML IV SCH (09:00)
== END 2017-08-08 21:15 | disposition short-term general hospital (02) ==
LOC: C.EDB 11:02 → CANBEDREQ 19:01 → C.EDC 21:15
DX: K62.89 Other specified diseases of anus and rectum (principal); K61.1 Rectal abscess; D64.9 Anemia, unspecified; D72.829 Elevated white blood cell count, unspecified; R00.0 Tachycardia, unspecified; R63.4 Abnormal weight loss; R53.83 Other fatigue; R06.02 Shortness of breath; R30.0 Dysuria; R60.0 Localized edema; R19.4 Change in bowel habit; R61 Generalized hyperhidrosis; R93.8 Abnormal findings on diagnostic imaging of other specified body structures